=== PATIENT | female | born 1970 | race Caucasian/White ===

== ENCOUNTER → 2020-06-29 14:57 | Outpatient (CLI) | payer OTHER, SELFPAY ==
--- NOTE | ~2020-06-29 | MM_ITS ---
EXAMINATION: MM screening jadyn BI w lluvia HISTORY: Screening TECHNIQUE: Craniocaudal and mediolateral oblique 3-D tomosynthesis images were obtained and synthetic 2-D images were generated. CAD analysis was submitted and interpreted. COMPARISON: Comparison to multiple prior studies sequentially, with oldest reviewed study dated 04/09. BREAST PARENCHYMAL COMPOSITION: There are scattered areas of fibroglandular density. FINDINGS: There is no evidence of suspicious mass, calcification, or architectural distortion to sugg est malignancy in either breast. There has been no suspicious interval change. IMPRESSION: 1. No mammographic evidence of malignancy. 2. Recommend routine screening mammography in one year. BI-RADS Category 1: Negative Reviewed, dictated and finalized at location A.
== END ==
PROVIDERS: Visit Provider Family Medicine
DX: Z12.31 Encounter for screening mammogram for malignant neoplasm of breast (principal)
CPT/HCPCS: 77063; 77067

== ENCOUNTER → 2020-08-27 09:52 | Outpatient (CLI) | payer OTHER, SELFPAY ==
--- NOTE | ~2020-08-27 | US_ITS ---
EXAMINATION: US retroperitoneal duplex ltd DATE: 08/27/2020 10:52 INDICATION: Hypertension. TECHNIQUE: Multiple grayscale, color Doppler, and pulsed Doppler images of the kidneys and renal laura choco were obtained. COMPARISON: None. FINDINGS: The aorta peak systolic velocity is 76 cm/s. The right renal artery peak systolic velocity is 112 cm/ s in the proximal segment, 81 cm/s in the mid segment, and 93 cm/s in the distal segment. The left re nal artery peak systolic velocity is 137 cm/s in the proximal segment, 76 cm/s in the mid segment, an d 102 cm/s in the distal segment. IMPRESSION: 1. No Doppler evidence of renal artery stenosis. Reviewed, dictated and finalized at location A.
== END ==
PROVIDERS: Visit Provider Family Medicine
DX: N28.9 Disorder of kidney and ureter, unspecified (principal); Z86.79 Personal history of other diseases of the circulatory system
CPT/HCPCS: 93976

== ENCOUNTER 2020-10-12 10:11 | Emergency (ER) | payer OTHER, SELFPAY ==
[2020-10-12 10:53] VITALS: BP 142/83; PULSE 74; RESP 18; TEMP 36.8; O2SAT 100
--- NOTE | 2020-10-12 11:29 | ED.SKABFB ---
HPI - Skin/Abscess/Foreign Bdy General Chief complaint: Skin/Abscess/Foreign Body Stated complaint: Bite on Rt Foot Time Seen by Provider: 10/12/20 11:25 Source: patient Mode of arrival: ambulatory Limitations: no limitations History of Present Illness HPI narrative: Bee Baca is a 50 yo female with a PMH of hypertension high cholesterol. She states her foot has continued to swell since Monday morning and it itches when she is sleeping at night. Shehas increase pain when she is trying to walk on it or move around Related Data Home Medications Medication Instructions Recorded Confirmed ascorbic acid (vitamin C) 500 mg 500 mg PO DAILY 05/07/20 10/12/20 tablet multivitamin 1 tablet PO DAILY 05/07/20 10/12/20 omega 9-ojf-wkg-fish oil 1,000 mg 1 cap PO DAILY 05/07/20 10/12/20 (120 mg-180 mg) capsule potassium 99 mg tablet 99 mg PO DAILY tablet 05/07/20 10/12/20 turmeric root extract 500 mg 1,000 mg PO DAILY cap 05/07/20 10/12/20 capsule vitamin B complex 1 tablet PO DAILY 05/07/20 10/12/20 vitamin E (dl, acetate) 180 mg 450 mg PO DAILY 05/07/20 10/12/20 (400 unit) capsule lisinopril 40 mg PO DAILY 10/12/20 10/12/20 metoprolol tartrate 25 mg PO BID 10/12/20 10/12/20 Allergies Allergy/AdvReac Type Severity Reaction Status Date / Time meloxicam Allergy Unknown back pain, Verified 10/12/20 11:23 elevated creatnine Review of Systems Review of Systems: CONSTITUTIONAL: Denies fever, chills, sweats. EYES: Denies visual changes, redness, discharge. ENT: Denies rhinorrhea, congestion, sore throat, otalgia. CARDIOVASCULAR: Denies chest pain, palpitations, edema. RESPIRATORY: Denies dyspnea, wheezing, cough GASTROINTESTINAL: Denies abdominal pain, nausea, vomiting, diarrhea. GENITOURINARY: Denies dysuria, hematuria, abnormal discharge SKIN: Denies rash or itching. NEUROLOGIC: Denies numbness, or focal weakness. PSYCHIATRIC: Denies anxiety or depression. Right swollen foot PMFSH Past Medical History Medical History Elevated liver enzymes High cholesterol Hypertension Lumbago with sciatica, right side Renal insufficiency Surgical History Surgical History H/O tubal ligation S/P right knee arthroscopy Family History Family History Father Hypertension Grandparent Hypertension Family history of cardiovascular disease Family history of malignant neoplasm Other Family history of allergic disorder Social History Social History Smoking status: Never smoker Second hand tobacco smoke exposure: No Alcohol intake: current Drinks per week: 15 Alcohol use details: beer Substance use: never Substance use type: does not use Gender identity (if verbalized by the patient): Female Spiritual care concerns: No Agree to blood products: Yes Comments At time of signature, I agree with nursing past medical, surgical, social and family history. There is no relevant family history pertinent to the presenting complaint. Exam Narrative: GENERAL: This is a well-nourished, well-developed patient, in mild distress. HEAD: normocephalic, atraumatic. EYES: Sclera clear/white. Vision is grossly intact. EARS: External ears normal,. Hearing grossly intact. NOSE: External nose normal without nasal discharge, nares without redness, no rhinorrhea. THROAT: Mucous membranes moist, NECK: Neck supple, non-tender CARDIOVASCULAR: Regular rate and rhythm without murmurs, gallops, or rubs. RESPIRATORY: Clear to auscultation. Breath sounds equal bilaterally. No wheezes, rales, or rhonchi. GASTROINTESTINAL: Abdomen soft, SKIN: warm, intact with no suspicious lesions or rash, good texture and turgor. NEURO: awake, alert, and oriented to person, place and time. There were no obvio
[2020-10-12] MEDS: predniSONE 20 MG TABLET 60 MG PO (11:47)
== END 2020-10-12 12:10 | disposition home or self-care (01) ==
PROVIDERS: Emergency Provider Nurse Practitioner; PCP Family Medicine
DX: L03.115 Cellulitis of right lower limb (principal); E78.00 Pure hypercholesterolemia, unspecified; I10 Essential (primary) hypertension
CPT/HCPCS: 99213; G0463; J7512

== ENCOUNTER 2021-02-22 01:29 | Day surgery (SDC) | payer OTHER, SELFPAY ==
[2021-02-16 13:48] VITALS: BMI 25.1
--- NOTE | 2021-02-19 12:00 | WPDANESEPPF ---
Anes - Initial Pre Proc Eval Procedure: Operation Date: 02/22/21 08:00 Proposed Procedures p Screening Colonoscopy - Ammon Maddox MD Date/Time: 02/19/21 12:00 Surgeon: Ammon Maddox MD Pre Op Diagnosis: neoplasm screening Patient Data Age: 50 Gender: F Height: 1.73 m Weight: 75 kg Allergies Allergy/AdvReac Type Severity Reaction Status Date / Time meloxicam Allergy Unknown back pain, Verified 02/22/21 06:48 elevated creatnine Home Medications Medication Instructions Recorded Confirmed Type ascorbic acid (vitamin C) 500 mg 500 mg PO DAILY 05/07/20 02/22/21 History tablet fluticasone propionate 50 2 spray INTRANASAL BID #16 ml 05/07/20 02/22/21 Rx mcg/actuation nasal spray,suspension multivitamin 1 tablet PO DAILY 05/07/20 02/22/21 History omega 4-rjw-reb-fish oil 1,000 mg 1 cap PO DAILY 05/07/20 02/22/21 History (120 mg-180 mg) capsule potassium 99 mg tablet 99 mg PO DAILY tablet 05/07/20 02/22/21 History turmeric root extract 500 mg 1,000 mg PO DAILY cap 05/07/20 02/22/21 History capsule vitamin B complex 1 tablet PO DAILY 05/07/20 02/22/21 History vitamin E (dl, acetate) 180 mg 450 mg PO DAILY 05/07/20 02/22/21 History (400 unit) capsule lisinopril 40 mg tablet See Rx Instructions .ROUTE 01/11/21 02/22/21 Rx .COMPLEX #90 tablet albuterol sulfate 90 mcg/actuation 2 puff INHALATION Q4H PRN #18 gm 02/01/21 02/22/21 Rx aerosol inhaler metoprolol tartrate 25 mg tablet See Rx Instructions .ROUTE 02/11/21 02/22/21 Rx .COMPLEX #180 tablet Patient hx anesthesia problems: none Family hx anesthesia problems: none Results Review: All pre-operative results and documents have been reviewed as part of the pre-operative evaluation. [facility] Past Medical History Medical History Elevated liver enzymes High cholesterol Hypertension Lumbago with sciatica, right side Renal insufficiency Surgical History Surgical History H/O tubal ligation S/P right knee arthroscopy Family History Family History Father Hypertension Grandparent Hypertension Family history of cardiovascular disease Family history of malignant neoplasm Other Family history of allergic disorder Social History Social History Smoking packs per day: 0.5 Smoking cigarettes per day: 10.0 Years smoked: 15 Smoking pack-years: 7.50 Smoking status: Former smoker Tobacco type: cigarettes Second hand tobacco smoke exposure: No Alcohol intake: current Drinks per week: 20 Alcohol use details: beer Substance use: never Substance use type: does not use Living arrangements: with family Gender identity (if verbalized by the patient): Female Spiritual care concerns: No Agree to blood products: Yes Anes - Eval Final PreProcedure Day of Procedure 02/19/21 12:00 Patient weight: overweight Heart: regular rate and rhythm Lungs: clear to auscultation and normal air movement Airway: Mallampati scale class II Neurological: alert and oriented Last oral intake: >/= 8 hours ASA classification: III Emergent: no Anesthetic plan: proceed Anesthesia type and monitoring: general GIVS and standard monitoring Results Review: All pre-operative results and documents have been reviewed as part of the pre-operative evaluation. Informed Consent: The patient's anesthetic plan and its attendant risks and benefits were discussed with the patient/family/POA. Questions were solicited and answers provided to the satisfaction of the patient/family/POA.
--- NOTE | 2021-02-19 12:14 | PM.HPGS ---
History of Present Illness History of Present Illness Consent: Risks, benefits, and alternatives have been discussed and questions answered. Patient agrees to proceed with procedure. Chief complaint: neoplasm screening Narrative: Bee Baca is a 50 year old female referred for colon cancer screening Review of Systems Review of Systems: All systems reviewed & are unremarkable except as noted in HPI and below PMFSH Past Medical History Medical History Elevated liver enzymes High cholesterol Hypertension Lumbago with sciatica, right side Renal insufficiency Surgical History Surgical History H/O tubal ligation S/P right knee arthroscopy Family History Family History Father Hypertension Grandparent Hypertension Family history of cardiovascular disease Family history of malignant neoplasm Other Family history of allergic disorder Social History Social History Smoking packs per day: 0.5 Smoking cigarettes per day: 10.0 Years smoked: 15 Smoking pack-years: 7.50 Smoking status: Former smoker Tobacco type: cigarettes Second hand tobacco smoke exposure: No Alcohol intake: current Drinks per week: 20 Alcohol use details: beer Substance use: never Substance use type: does not use Living arrangements: with family Gender identity (if verbalized by the patient): Female Spiritual care concerns: No Agree to blood products: Yes Meds Home Medications and Allergies Home Medications Medication Instructions Recorded Confirmed Type ascorbic acid (vitamin C) 500 mg 500 mg PO DAILY 05/07/20 02/22/21 History tablet fluticasone propionate 50 2 spray INTRANASAL BID #16 ml 05/07/20 02/22/21 Rx mcg/actuation nasal spray,suspension multivitamin 1 tablet PO DAILY 05/07/20 02/22/21 History omega 4-qgg-kwc-fish oil 1,000 mg 1 cap PO DAILY 05/07/20 02/22/21 History (120 mg-180 mg) capsule potassium 99 mg tablet 99 mg PO DAILY tablet 05/07/20 02/22/21 History turmeric root extract 500 mg 1,000 mg PO DAILY cap 05/07/20 02/22/21 History capsule vitamin B complex 1 tablet PO DAILY 05/07/20 02/22/21 History vitamin E (dl, acetate) 180 mg 450 mg PO DAILY 05/07/20 02/22/21 History (400 unit) capsule lisinopril 40 mg tablet See Rx Instructions .ROUTE 01/11/21 02/22/21 Rx .COMPLEX #90 tablet albuterol sulfate 90 mcg/actuation 2 puff INHALATION Q4H PRN #18 gm 02/01/21 02/22/21 Rx aerosol inhaler metoprolol tartrate 25 mg tablet See Rx Instructions .ROUTE 02/11/21 02/22/21 Rx .COMPLEX #180 tablet Allergies Allergy/AdvReac Type Severity Reaction Status Date / Time meloxicam Allergy Unknown back pain, Verified 02/22/21 06:48 elevated creatnine Exam Resp: Auscultation: clear to auscultation bilaterally Cardio: Rate: regular rate Rhythm: regular rhythm GI: GI Palp: Yes Soft to palpation and No Tenderness to palpation present (GI) Assessment and Plan Assessment and plan (1) Colon cancer screening: Code(s): Z12.11 - Encounter for screening for malignant neoplasm of colon Status: Acute Assessment and Plan: Colonoscopy with possible biopsy or polypectomy or cautery or injection of substances.
[2021-02-22 06:49] VITALS: BP 144/95; PULSE 77; RESP 18; TEMP 36.4; O2SAT 99
[2021-02-22] MEDS: LACTATED RINGERS 1,000 ML 150 ML IV CONT (07:03)
[2021-02-22 08:11] VITALS: BP 99/71; PULSE 68; RESP 20; O2SAT 99
[2021-02-22 08:21] VITALS: BP 104/87; PULSE 66; RESP 18; O2SAT 100
[2021-02-22 08:31] VITALS: BP 108/72; PULSE 66; RESP 20; O2SAT 100
== END 2021-02-22 08:50 | disposition home or self-care (01) ==
PROVIDERS: PCP Family Medicine; Visit Provider Internal Medicine Gastroenterology
PROC: 0DJD8ZZ Inspection of Lower Intestinal Tract, Via Natural or Artificial Opening Endoscopic (ICD-10-PCS; CPT 45378; principal; 2021-02-22 08:00)
DX: Z12.11 Encounter for screening for malignant neoplasm of colon (principal); R74.01 Elevation of levels of liver transaminase levels; E78.00 Pure hypercholesterolemia, unspecified; I10 Essential (primary) hypertension; M54.41 Lumbago with sciatica, right side; N28.9 Disorder of kidney and ureter, unspecified; Z87.891 Personal history of nicotine dependence; Z79.51 Long term (current) use of inhaled steroids
CPT/HCPCS: 45378; J2704; J7120

== ENCOUNTER → 2022-02-10 15:20 | Outpatient (CLI) | payer OTHER, SELFPAY ==
--- NOTE | ~2022-02-10 | MM_ITS ---
EXAMINATION: MM screening jadyn BI w lluvia HISTORY: Screening mammogram TECHNIQUE: Craniocaudal and mediolateral oblique 3-D tomosynthesis images were obtained and synthetic 2-D images were generated. CAD analysis was submitted and interpreted. COMPARISON: , 12/22/2018, 07/13/2017 bilateral screening mammogram examinations BREAST PARENCHYMAL COMPOSITION: There are scattered areas of fibroglandular density. FINDINGS: Stable circumscribed small benign probable intramammary lymph node in the posterior upper o uter right breast. There is no evidence of suspicious mass, calcification, or architectural distortio n to suggest malignancy in either breast. There has been no suspicious interval change. IMPRESSION: 1. No mammographic evidence of malignancy. 2. Recommend routine screening mammography in one year. BI-RADS Category 1: Negative Reviewed, dictated and finalized at location A. ITY DIRECTOR
--- NOTE | ~2022-02-10 | DEXA_ITS ---
Bone Density Report Name: DAMARI CARLSON Age: 51 Sex: Female Ethnicity: White Date of : 1970 Indication: postmenopausal; screening for osteoporosis; height loss; Referring Provider: IVON PHILLIPS Study: Bone densitometry was performed. Exam Date: February 10, 2022 Accession number: [id number] Bone Density: Region BMD T-score Z-score Classification AP Spine (L1-L4) 1.119 0.7 1.6 Normal Femoral Neck (Left) 0.833 -0.1 0.8 Normal Total Hip (Left) 0.954 0.1 0.7 Normal Femoral Neck (Right) 0.926 0.7 1.6 Normal Total Hip (Right) 0.953 0.1 0.7 Normal Total Hip Mean 0.954 0.1 0.7 Normal World Health Organization criteria for BMD impression classify patients as: Normal (T-score at or above -1.0), Osteopenia (T-score between -1.0 and -2.5), or Osteoporosis (T-score at or below -2.5). 10-year Fracture Risk: FRAX not reported because: All T-scores for Spine Total, Hip Total, Femoral Neck at or above -1.0 Clinical Information Provided by Patient: Has 3 or more alcoholic drinks per day Has used the following medications: Vitamin D Patient maximum height was 68 Menopause Age: 49 Does not regularly consume dairy products Drinks caffeinated beverages Onset of menses at age 12 Number of children 2 Impression: The patient has normal bone mass. The patient has risk factors, including: excessive alcohol use. Discussion: BONE DENSITY IS ABOVE THE MINIMUM DESIRABLE LEVEL AT ALL SKELETAL SITES TESTED. This patient?s bone mineral density is above the minimum desirable level (T-score -1.0 or better) at all sites measured. The patient should follow a healthful lifestyle (good nutrition with adequate calcium and vitamin D, and appropriate weight-bearing exercise). Follow-Up: Consider repeating this study in 5 years or sooner if there is some new clinical indication. Reported by: VICKI on 02/10/2022 3:58:00 PM. Reviewed, dictated and finalized at location Abby PAUL
== END ==
PROVIDERS: PCP Family Medicine; Visit Provider Family Medicine
DX: Z12.31 Encounter for screening mammogram for malignant neoplasm of breast (principal); Z78.0 Asymptomatic menopausal state
CPT/HCPCS: 77063; 77067; 77080

== ENCOUNTER 2022-07-22 08:57 | Outpatient (CLI) | payer OTHER, SELFPAY ==
--- NOTE | ~2022-07-22 | US_ITS ---
EXAMINATION: US carotid duplex BI DATE: 07/22/2022 10:45 INDICATION: Dizziness. Other specified symptoms and signs. TECHNIQUE: Grayscale, color Doppler, and pulsed Doppler images of the cervical carotid arteries were obtained. The degree of vessel stenosis is placed in one of the following categories: normal, <50%, 5 0-69%, >=70% but less than near-occlusion, near-occlusion, or total occlusion. Note that percent sten osis relative to normal distal artery lumen diameter is indirectly measured from velocity measurement s as described by Yang, et al. Radiology 2003; 229:340-346. COMPARISON: None. FINDINGS: RIGHT: The right common carotid artery (CCA) peak systolic velocity (PSV) is 96 cm/s. The right internal car otid artery (ICA) PSV is 75 cm/s. The right ICA end-diastolic velocity (EDV) is 32 cm/s. The right IC A/CCA PSV ratio is 0.8. Grayscale and color Doppler images yield an estimate of <50% diameter reducti on from plaque in the ICA. There is antegrade flow in the right vertebral artery. LEFT: The left CCA PSV is 106 cm/s. The left ICA PSV is 65 cm/s. The left ICA EDV is 31 cm/s. The left ICA/ CCA PSV ratio is 0.6. Grayscale and color Doppler images yield an estimate of <50% diameter reduction from plaque in the ICA. There is antegrade flow in the left vertebral artery. IMPRESSION: 1. <50% stenosis in the right internal carotid artery. 2. <50% stenosis in the left internal carotid artery. Reviewed, dictated and finalized at location A.
== END 2022-07-22 08:58 | disposition home or self-care (01) ==
PROVIDERS: PCP Family Medicine; Visit Provider Nurse Practitioner Family
DX: R07.9 Chest pain, unspecified (principal); R09.89 Other specified symptoms and signs involving the circulatory and respiratory systems; R42 Dizziness and giddiness; R53.83 Other fatigue; I65.23 Occlusion and stenosis of bilateral carotid arteries
CPT/HCPCS: 93880

== ENCOUNTER 2023-06-13 16:00 | Emergency (ER) | payer OTHER, SELFPAY ==
--- NOTE | ~2023-06-13 | XR_ITS ---
EXAM: XR foot RT min 3V DATE: 06/13/2023 16:32 HISTORY: stepped in hole pain across distal rt metatarsals x 3 weeks . COMPARISON: None available. FINDINGS: Decreased mineralization. No fracture or dislocation. No lytic or blastic lesion. Moderate degenerative change at the first MTP joint. Minimal plantar enthesopathy. No erosion or periosteal c hange. Forefoot soft tissue swelling. IMPRESSION: No acute osseous finding in the right foot. Reviewed, dictated and finalized at location K.
--- NOTE | 2023-06-13 16:09 | ED.LOWEXIN ---
HPI - Extremity Injury (Lower) General Chief Complaint: Extremity Injury, Lower Stated Complaint: Right Foot Pain Time Seen by Provider: 06/13/23 16:44 Source: patient and RN notes reviewed Mode of arrival: ambulatory Limitations: no limitations History of Present Illness HPI Narrative: 53-year-old female presents with concern for right foot pain and swelling. Reports 3 weeks ago she stepped in a hole causing pain. Reports the foot is still becoming swollen at the end the day and is painful. She has not been using any intervention such as wrapping, ice. She works on her feet. MD complaint: foot injury Related Data Home Medications Medication Instructions Recorded Confirmed ascorbic acid (vitamin C) 500 mg 500 mg PO DAILY 05/07/20 06/13/23 tablet multivitamin (One-A-Day Essential 1 tablet PO DAILY 05/07/20 06/13/23 tablet) omega 9-aof-pas-fish oil 1,000 mg 1 cap PO DAILY 05/07/20 06/13/23 (120 mg-180 mg) capsule (Fish Oil) potassium 99 mg tablet 99 mg PO DAILY 05/07/20 06/13/23 turmeric root extract 500 mg 1,000 mg PO DAILY 05/07/20 06/13/23 capsule vitamin B complex (B 1 tablet PO DAILY 05/07/20 06/13/23 Complex-Vitamin B12 tablet) vitamin E (dl, acetate) 180 mg 450 mg PO DAILY 05/07/20 06/13/23 (400 unit) capsule Calcium 600 with Vitamin D3 1 tab-cap PO DAILY 06/13/23 06/13/23 Garlic-X 1 tab-cap PO DAILY 06/13/23 06/13/23 Allergies Allergy/AdvReac Type Severity Reaction Status Date / Time meloxicam Allergy Unknown back pain, Verified 06/13/23 16:03 elevated creatnine Review of Systems Review of Systems: CONSTITUTIONAL: Denies malaise, chills, sweats, or fever. SKIN: Denies rash or itching, open skin, laceration, abrasion, redness, warmth MUSCULOSKELETAL: Reports right foot pain and swelling NEUROLOGIC: Denies numbness, weakness All systems reviewed & are unremarkable except as noted in HPI and below PMFSH Past Medical History Medical History Cellulitis Elevated liver enzymes High cholesterol Hypertension Insect bite (nonvenomous) of abdominal wall, initial encounter Lumbago with sciatica, right side Renal insufficiency Surgical History Surgical History H/O tubal ligation S/P right knee arthroscopy Family History Family History Father Hypertension Grandparent Hypertension Family history of cardiovascular disease Family history of malignant neoplasm Other Family history of allergic disorder Social History Social History Smoking packs per day: 0.5 Smoking cigarettes per day: 10.0 Years smoked: 15 Smoking pack-years: 7.50 Smoking status: Former smoker Tobacco type: cigarettes Second hand tobacco smoke exposure: No Alcohol intake: current Drinks per week: 20 Alcohol use details: beer Substance use: never Substance use type: does not use Living arrangements: with family Occupation/Education: occupation Gender identity (if verbalized by the patient): Female Spiritual care concerns: No Agree to blood products: Yes Comments At time of signature, agree with nursing past medical, surgical, social and family history. There is no relevant family history pertinent to the presenting complaint Exam Narrative: GENERAL: Well-appearing, well-nourished, and in no acute distress. HEAD: Normocephalic, atraumatic. EYES: PERRLA, conjunctivae clear NECK: Supple. CHEST: Speaks in full sentences. No respiratory distress. HEART: Regular rate and rhythm. Normal and equal peripheral pulses. EXTREMITIES: Right foot, digits have grossly normal strength and sensation, normal range of motion. Mild dorsal edema, no erythema, warmth, ecchymosis. Normal sensation with sensitivity to light touch and pain. Dorsal tender
[2023-06-13 16:15] VITALS: BP 177/101; PULSE 86; RESP 18; TEMP 36.4; O2SAT 100
[2023-06-13 17:00] VITALS: BP 175/100
== END 2023-06-13 17:00 | disposition home or self-care (01) ==
PROVIDERS: Emergency Provider Nurse Practitioner; PCP Nurse Practitioner Family
DX: S93.601A Unspecified sprain of right foot, initial encounter (principal); W17.2XXA Fall into hole, initial encounter; E78.00 Pure hypercholesterolemia, unspecified; I10 Essential (primary) hypertension; F17.210 Nicotine dependence, cigarettes, uncomplicated
CPT/HCPCS: 73630; 99213; G0463

== ENCOUNTER 2024-06-05 10:16 | Outpatient (CLI) | payer OTHER, SELFPAY ==
--- NOTE | ~2024-06-05 | MM_ITS ---
EXAMINATION: MM screening jadyn BI w lluvia HISTORY: Screening TECHNIQUE: Craniocaudal and mediolateral oblique 3-D tomosynthesis images were obtained and synthetic 2-D images were generated. CAD analysis was submitted and interpreted. COMPARISON: Comparison to multiple prior studies sequentially, with oldest reviewed study dated 04/09. BREAST PARENCHYMAL COMPOSITION: Not dense: There are scattered areas of fibroglandular density. FINDINGS: There is no evidence of suspicious mass, calcification, or architectural distortion to sugg est malignancy in either breast. There has been no suspicious interval change. IMPRESSION: 1. No mammographic evidence of malignancy. 2. Recommend routine screening mammography in one year. BI-RADS Category 1: Negative Reviewed, dictated and finalized at location A.
== END 2024-06-05 10:17 | disposition home or self-care (01) ==
LOC: MICIMG 10:17
PROVIDERS: PCP Obstetrics & Gynecology; Visit Provider Nurse Practitioner Family
DX: Z12.31 Encounter for screening mammogram for malignant neoplasm of breast (principal)
CPT/HCPCS: 77063; 77067